=== PATIENT | female | born 1985 | race African-American/Black ===

== ENCOUNTER 2018-11-22 16:05 | Emergency (ER) | payer SELFPAY ==
[2018-11-22] MEDS ORDERED: Lorazepam 2 MG/ML VIAL ONE (17:02)
== END 2018-11-22 18:10 | disposition home or self-care (01) ==
LOC: ERS 16:05
DX: F41.1 Generalized anxiety disorder (principal); G43.909 Migraine, unspecified, not intractable, without status migrainosus
CPT/HCPCS: 94760; 96372; J2060